=== PATIENT | female | born 1955 | race Caucasian/White ===

== ENCOUNTER 2018-01-25 18:48 | Emergency (ER) | payer OTHER ==
[~2018-01-25] VITALS: Ht 180.3 cm; Wt 111.6 kg
[~2018-01-25 18:48] MED LIST: ACETAMINOPHEN325 M1 PO; AMBIEN 10 MG TA10 MG PO; ARTIFICIAL TEAR15 M6; ATIVAN0.5 MG; Alprazolam 1mg PO; BIAXIN 500 MG500 M2 PO; CARISOPRODOL 3350 MG PO; CEFTIN500 MG PO; CRESTOR10 MG PO; FENOFIBRATE134 MG PO; LUMIGAN2.5 M1 OP; NEURONTIN 300300 M1 PO; NEXIUM40 MG PO; NIASPAN 500 MG500 M1 PO; OXYCODONE HCL 55 MG PO; OXYCONTIN40 MG PO; PROAIR HFA8.5 GM IH; PROZAC 20 MG20 MG PO; XANAX 0.5 MG0.5 M1 PO
[2018-01-25] MEDS ORDERED: ATIVAN1 MG (19:08)
[2018-01-25] MEDS ORDERED: XANAX1 MG (19:21)
[2018-01-25] MEDS ORDERED: COZAAR100 MG (19:21)
[2018-01-25] MEDS ORDERED: ADULT ASPIRIN R81 MG (19:22)
[2018-01-25] MEDS ORDERED: CARVEDILOL12.5 MG (19:22)
[2018-01-25] MEDS ORDERED: TRICOR145 MG (19:22)
[2018-01-25] MEDS ORDERED: TRAMADOL 50 MG50 MG (19:23)
[2018-01-25] MEDS ORDERED: FLEXERIL (19:23)
[2018-01-25] MEDS ORDERED: NEURONTIN600 MG (19:23)
[2018-01-25] MEDS ORDERED: NIACIN 100MG T100 M1 (19:24)
[2018-01-25] MEDS ORDERED: CRESTOR20 MG (19:24)
[2018-01-25] MEDS ORDERED: VITAMIN D1000 UNI1 (19:24)
[2018-01-25] MEDS ORDERED: GLUCOPHAGE850 MG (19:25)
[2018-01-25] MEDS ORDERED: NICOTINE LOZENGE2 MG (19:26)
[2018-01-25 19:58] LABS: ABSOLUTE BASOPHILS 0.1 thou/uL (0.0-0.2); ABSOLUTE EOSINOPHILS 0.2 thou/uL (0.0-0.7); ABSOLUTE LYMPHOCYTES 2.8 thou/uL (0.8-5.3); ABSOLUTE MONOCYTES 0.5 thou/uL (0.0-1.2); ABSOLUTE NEUTROPHILS 4.5 thou/uL (1.6-8.1); EOSINOPHILS 2.4 %; HEMATOCRIT 44.5 % (37.0-47.0); HEMOGLOBIN 14.8 gm/dL (12.0-15.0); LYMPHOCYTES 34.8 %; MCH 30.8 pg (26.0-34.0); MCHC 33.3 g/dL (28.0-37.0); MCV 92.5 fL (80.0-100.0); MONOCYTES 6.6 %; MPV 9.6 fl. (7.2-11.1); NUCLEATED RBCS 0 /100WBC; PLATELET COUNT* 248 thou/uL (150-400); POLYS 55.2 %; RBC 4.81 mil/uL (4.20-5.00); RDW-CV 14.1 % (10.5-14.5); WBC 8.1 thou/uL (4.0-11.0)
[2018-01-25 20:28] LABS: CALCIUM 9.1 mg/dL (8.5-10.1); CREATININE 0.8 mg/dL (0.6-1.3); POTASSIUM 3.6 mmol/L (3.5-5.1)
[2018-01-25 20:32] LABS: ALBUMIN 3.9 g/dL (3.4-5.0); TOTAL BILIRUBIN 0.3 mg/dL (<0.1-1.0); TOTAL PROTEIN 7.7 g/dL (6.4-8.2)
[2018-01-25 20:56] VITALS: BP 133/76
== END 2018-01-25 20:59 | disposition home or self-care (01) ==
LOC: M.ERS 18:48
PROVIDERS: Nurse Practitioner Family
DX: R60.0 Localized edema (principal); E78.5 Hyperlipidemia, unspecified; F17.210 Nicotine dependence, cigarettes, uncomplicated; Z88.0 Allergy status to penicillin; Z88.1 Allergy status to other antibiotic agents; Z88.8 Allergy status to other drugs, medicaments and biological substances; Z90.710 Acquired absence of both cervix and uterus; Z90.49 Acquired absence of other specified parts of digestive tract